=== PATIENT | female | born 1975 | race African-American/Black ===

== ENCOUNTER 2019-11-30 01:06 | Inpatient (IN) | payer OTHER ==
[~2019-11-30] VITALS: Ht 170.2 cm; Wt 81.6 kg
[2019-11-30] VITALS (12 sets, daily range): BP systolic 121–152; BP diastolic 65–101
--- NOTE | ~2019-11-30 | HC ---
[facility] [place] [address] CONSULTATION Name: KIMBERLEE HENDRICKS Dorian Room #: 448-P ADM IN .R.#: [id number] Admission: 11/30/19 Attend Phys: Jorge Sexton MD Discharge: Date of : 75 Report #: [id number] THIS REPORT FOR: cc: [facility] - Family physician unknown JOSE ARMANDO - Family physician unknown Gissel Echeverria MD ~ CC: JOSE ARMANDO unknown Jorge Sexton DATE OF SERVICE: 11/30/2019 REASON FOR CONSULTATION: Right ankle fracture dislocation. HISTORY OF PRESENT ILLNESS: The patient is a 44-year-old female who was walking yesterday, got her foot caught in a vent and her boyfriend pop the ankle back into place. REVIEW OF SYSTEMS: INTEGUMENTARY: Reports a laceration to her right foot. MUSCULOSKELETAL: Denies other injuries. ALLERGIES: No known drug allergies. 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 Denies smoking. Drinks approximately one alcoholic drink every other week. Does not use any ambulatory aids. PAST MEDICAL HISTORY: Significant for dysmenorrhea. MEDICATIONS: No reported medications. PAST SURGICAL HISTORY: None. LABORATORY STUDIES: On 11/30/2019 show white blood cell count 10.4, hemoglobin 6, hematocrit is 21.5, platelet count 424. INR is 1. Chemistry is pending. PHYSICAL EXAMINATION: GENERAL: She is alert and oriented, interacts appropriately. She is a well-developed, well-nourished female in no acute distress. VITAL SIGNS: Most recent vital signs show heart rate of 76, respiratory rate 22, blood pressure 145/76, pulse oximetry is 98% on room air. EXTREMITIES: Examination of her right lower extremity, she is a bandage on the medial side of her distal foot from a laceration. She has diffuse edema at the ankle, but I am able to perform a wrinkle test. She has deformities. She has diffuse tenderness. Brisk capillary refill. Sensation is intact to light touch throughout. She wiggles her toes. [facility] [address] [place] [address] CONSULTATION Name: KIMBERLEE HENDRICKS Room #: 448-P [facility] IN .R.#: [id number] Admission: 11/30/19 Attend Phys: Jorge Sexton MD Discharge: Date of : 75 Report #: [id number] RADIOGRAPHS: AP, lateral and mortise view of the right ankle show a fibula fracture at the level of the ankle with some comminution and lateral displacement of the talus. There might be some small fragments medially, but no large fracture fragment. IMPRESSION AND PLAN: Right ankle fracture dislocation. I discussed the diagnosis as well as treatment options. She also has chronic anemia. The patient has already received 1 unit of packed red blood cells. I will write for another one prior to surgery, which hopefully will be done today. The risks, benefits, alternatives, complications were discussed of the surgery including but not limited to infection, damage to vessels or nerves, nonunion, malunion, hardware failure, hardware rotation and stiffness. We also discussed the typical procedure as well as postoperative course. Informed consent was obtained. We will proceed with a surgery when the schedule and the patient's hemoglobin allows. By: [id number] Gissel Echeverria MD /nt
--- NOTE | ~2019-11-30 | O ---
[facility] [place] [address] OPERATIVE REPORT Name: KIMBERLEE HENDRICKS Dorian Room #: 448-P ADM IN M.R.#: [id number] Admission: 11/30/19 Attend Phys: Nolan Cleveland MD Discharge: Date of : 75 Report #: [id number] THIS REPORT FOR: cc: JOSE ARMANDO - Family physician unknown JOSE ARMNADO - Family physician unknown Gissel Echeverria MD ~ CC: JOSE ARMANDO unknown Nolan Cleveland DATE OF SERVICE: 11/30/2019 PREOPERATIVE DIAGNOSIS: Right lateral malleolus ankle fracture dislocation. POSTOPERATIVE DIAGNOSIS: Right lateral malleolus ankle fracture dislocation. PROCEDURE PERFORMED: Open reduction and internal fixation of right lateral malleolus/distal fibula fracture. SURGEON: Gissel Echeverria MD ANESTHESIA: General mask anesthesia. ESTIMATED BLOOD LOSS: 1 mL. TOURNIQUET TIME: 43 minutes. COMPLICATIONS: None. CONDITION: Stable. DISPOSITION: Recovery room. INDICATIONS: The patient is a 44-year-old female with the above-mentioned diagnosis. She elects for operative treatment. The risks, benefits, alternatives and complications were discussed including, but not limited to infection, damage to vessels or nerves, nonunion, malunion, hardware failure, and hardware rotation stiffness. We discussed she might require hardware removal. At some point, we discussed typical procedure as well as postoperative course. Informed consent was obtained. The correct extremity was identified and labeled by myself after verbal confirmation of the patient as well as visual confirmation and signed informed consent. DESCRIPTION OF PROCEDURE: The patient was brought to the operating room and placed in supine position. She received preoperative antibiotics. Tourniquet was placed around the patient's right lower extremity. Right lower extremity was sterilely prepped and draped in the usual fashion. A timeout was taken to [address] [address] OPERATIVE REPORT Name: KIMBERLEE HENDRICKS Room #: 448-P [facility] IN M.R.#: [id number] Admission: 11/30/19 Attend Phys: Nolan Cleveland MD Discharge: Date of : 75 Report #: [id number] verify correct patient, operative procedure, operative site, all concurred. Leg was elevated, exsanguinated and the tourniquet inflated. Next, approximately 10 cm incision was made over the lateral malleolus. Dissection was carried down through subcutaneous tissue with tenotomy scissors, taking care to protect sensory nerves. The fracture site was easily identified. It was cleaned of clot and debris and reduced. The posterior spike was much smaller than it appeared on the x-ray and my original plan for a lag screw was unable to be performed. The anterior comminuted section was in the anterior half at the level of the tib-fib joint. The fracture was reduced and a lateral one-third tubular plate was applied to the bone. It was checked in both AP and lateral planes. The screw was placed both distally and proximally and it was found to have excellent fixation. The remaining screws were drilled, measured and appropriate size screws were placed. Careful attention placed to avoid any intra-articular penetration of the distal screws. They all had appropriate fixation. Next, cancellous bone chips were placed into the fracture site and the anterior piece was sutured to the periosteum using a 2-0 Vicryl suture. AP, lateral, and mortise views were all taken as well as a clamp was placed on the fibula and stress was placed on this to evaluate the syndesmosis. The syndesmosis was stable. The wound was thoroughly irrigated. The periosteum and deep tissues were closed with 2-0 Vicryl. The subcutaneous tissue was closed with 2-0 Vicryl. The skin was closed with jamal. The subcutaneous tissue was infiltrated approximately 10 mL of 0.25% Marcaine. She was placed in a bulky dressing and a posterior and sugar tong splint. Of note, the talus is well seated within the tibia on all views. All toes were pink with brisk capillary refill at the conclusion of case. After deflation of tourniquet, all sponge and needle counts were correct. The patient was transferred to postoperative recovery room in stable condition. By: [id number] Gissel Echeverria MD /nt
[2019-11-30 02:23] LABS: ABSOLUTE NEUTROPHILS 6.6 thou/uL (1.4-8.2); BASOPHILS 1.4 % (0.0-2.0); CREATININE 1.1 mg/dL (0.6-1.0); EOSINOPHILS 0.9 % (0.0-3.0); HEMATOCRIT 22.6 % (37.0-47.0); LYMPHOCYTES 21.4 % (24.0-44.0); MCH 16.3 pg (26.0-34.0); MCHC 27.6 g/dL (28.0-37.0); MONOCYTES 4.7 % (1.0-8.0); PLATELET COUNT 494 thou/uL (150-400); POLYS 71.6 % (36.0-66.0); POTASSIUM 3.4 mmol/L (3.5-5.1); RBC 3.83 mil/uL (4.20-5.00); RDW 19.4 % (10.5-14.5); WBC 9.3 thou/uL (4.0-11.0)
[2019-11-30 02:27] LABS: APTT 20.4 Seconds (24.5-32.8); PROTIME 9.5 Seconds (9.3-11.4)
[2019-11-30 02:29] LABS: HEMOGLOBIN 6.2 gm/dL (12.0-15.0)
[2019-11-30 02:55] LABS: HEMATOCRIT 21.5 % (37.0-47.0); MCH 16.4 pg (26.0-34.0); MCHC 27.7 g/dL (28.0-37.0); MCV 59.3 fL (80.0-100.0); RBC 3.63 mil/uL (4.20-5.00); RDW 18.8 % (10.5-14.5); WBC 10.4 thou/uL (4.0-11.0)
[2019-11-30 06:12] LABS: % SATURATION 2 % (20-39); IRON 10 ug/dL (50-170); TIBC 431 ug/dL (250-450)
[2019-11-30 06:17] LABS: TSH 6.986 uIU/mL (0.358-3.740)
--- NOTE | 2019-11-30 08:39 | NUR ---
PT ARIVED ON UNIT FROM ER AT 0300. ADMITED FROM HOME WITH RIGHT ANKLE FRACTURE. PLAN FOR SURGERY 11/30. FENTANYL PROVIDING PAIN RELIEF. RESTING COMFORTABLY. NO NEEDS VOICED. CALL LIGHT WITHIN REACH. FREQUENT OBSERVATION.
--- NOTE | 2019-11-30 10:20 | NUR ---
PT ASSESSED AT START OF SHIFT. DR. VÁSQUEZ IN EARLY TO SEE PT AND WRITE ORDERS. PT RECEIVED ONE UNIT PRBC'S AND SECOND UNIT INFUSING AT THIS TIME. RT LEG ELEVATED W/ ICE PACKS SURROUNDING ANKLE. PT ON MENSES. SURGERY RN HERE AT THIS TIME TO TAKE PT TO HOLDING FOR SURGERY. BLOOD TRANSFUSION WILL CONTINUE AND FINISH THERE.
[2019-11-30 15:40] LABS: HEMATOCRIT 28.4 % (37.0-47.0)
[2019-11-30 16:01] LABS: HEMOGLOBIN 8.3 gm/dL (12.0-15.0)
[2019-11-30 17:16] LABS: % SATURATION 3 % (20-39); IRON 12 ug/dL (50-170); TIBC 407 ug/dL (250-450)
[2019-11-30 17:34] LABS: ABSOLUTE RETIC COUNT 0.0451 10^6/uL; OBSERVED RETIC COUNT 1.24 % (0.6-2.6)
[2019-11-30 17:50] LABS: FOLIC ACID 14.1 ng/mL (8.6-58.9); TSH 7.45 uIU/mL (0.358-3.740)
--- NOTE | 2019-11-30 18:30 | NUR ---
PT RETURNED FROM OR AT 1320 ALERT AND FEELING GOOD. BLOOD TRANSFUSION COMPLETED IN SURGERY AND CHARTED BY HOLDING RN. PT TRANSFERING TO BSC W/ STRICT NON WT BEARING ON RT LEG. POST OP HGB 8.3. PT STARTED ON B12 IM. RT LEG ELEVATED W/ ICE PACKS. GOOD CIRC/SENS TO TOES. PAIN WELL CONTROLLED. EATING W/O NAUSEA. PLANNING FOR DC TOMORROW.
[2019-12-01 05:27] VITALS: BP 130/68
[2019-12-01 06:12] LABS: HEMOGLOBIN 6.7 gm/dL (12.0-15.0)
[2019-12-01 06:15] LABS: HEMATOCRIT 22.6 % (37.0-47.0); MCH 19.4 pg (26.0-34.0); MCHC 29.5 g/dL (28.0-37.0); RBC 3.44 mil/uL (4.20-5.00); RDW 24.4 % (10.5-14.5); WBC 8.8 thou/uL (4.0-11.0)
[2019-12-01 06:17] LABS: CALCIUM 8.3 mg/dL (8.5-10.1); CREATININE 0.9 mg/dL (0.6-1.0); MAGNESIUM 2.2 mg/dL (1.8-2.4); POTASSIUM 4.8 mmol/L (3.5-5.1)
[2019-12-01 06:21] LABS: MCV 65.7 fL (80.0-100.0); PLATELET COUNT 187 thou/uL (150-400)
--- NOTE | 2019-12-01 08:15 | NUR ---
PT TRANSFERRING TO BEDSIDE COMMODE WITH STANDBY ASSIST AND IS TOLERATING FAIR. [facility]ENTANYL AND [facility] PROVIDING PAIN RELIEF. POSSIBLE DISCHARGE HOME 12/01. RESTING COMFORTABLY. NO NEEDS VOICED. CALL LIGHT WITHIN REACH. FREQUENT OBSERVATION.
[2019-12-01 08:18] VITALS: BP 121/73
[2019-12-01 08:47] LABS: ANISOCYTOSIS 2+; HYPOCHROMASIA 3+; METAMYELOCYTES 1 %; MICROCYTES 2+; PLATELET ESTIMATE NORMAL
--- NOTE | 2019-12-01 16:44 | NUR ---
PT ADMITTED RELATED TO RIGHT ANKLE FRACTURE S/P ORIF. CM REVIEWED CHART AND SPOKE WITH CARE TEAM. CM MET WITH PT AT BEDSIDE THIS DAY. PT IS A&O X4. CM ROLE INTRODUCED. PT INDICATED SHE LIVES IN A HOUSE WITH HER FIANCE WITH 4 STEPS TO ENTER AND NO STEPS INSIDE. 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 COPY OF CARDS WAS GOTTEN AND PROVIDED TO NEEDED DEPT FOR UPDATING. CM ORDERED A KNEE SCOOTER FOR HOME USE THROUGH [employer] IT IS TO BE DELIVERED TOMORROW. CM TO FOLLOW INDICATED WITH DC PLANNING.
--- NOTE | 2019-12-01 20:43 | NUR ---
PT A&OX4. NWB TO RIGHT ANKLE. PIVOTS TO BSC WITH MIN ASSIT. PAIN CONTROLLED WITH PO PAIN MED. CALL LIGHT W/I REACH. WILL CONT POC.
[2019-12-01 22:20] VITALS: BP 120/72
--- NOTE | 2019-12-02 04:05 | NUR ---
ASSUMED CARE OF PT @1900 PT A&0X4 PER REPORT IV INFILTRATED DURING THE DAY AND FLUIDS NOT INFUISING. NEW IV INSERTED IN RT A/C AFTER X2 ATTEMPT FLUIDS RESTARTED AND NEW IV INTACT. PT UP WITH ASSIT NWB ON RT LEG. PAIN MEDS GIVEN THIS SHIFT SEE EMAR. FALL PREC IN PLACE AND CALL LIGHT IN REACH WILL CONT WITH POC TILL EOS.
[2019-12-02 05:30] VITALS: BP 128/73
[2019-12-02 08:00] VITALS: BP 133/72
--- NOTE | 2019-12-02 12:23 | NUR ---
PT CARE ASSUMED AT 0700. A&Ox4. PT IS POST OP DAY 2 AND WILL BE DISCHARGING LATER TODAY AFTER WORKING WITH PT. IV FLUIDS STILL INFUSING WITH POTASSIUM. IV IS PATENT WITH NO REDNESS OR EDEMA. PAIN WELL MANAGED AND NO PAIN MEDICATION REQUESTED. FALL PROTOCOLL IN PLACE. CALL LIGHT IN REACH.
[2019-12-02] MEDS ORDERED: NORCO 7.5-3251 EACH PO (13:33)
[2019-12-02 14:06] VITALS: BP 133/72
--- NOTE | 2019-12-02 14:25 | NUR ---
CARE TEAM INDICATED THAT PT IS MEDICALLY STABLE TO DC HOME THIS DAY WITH HH SERVICES AND A KNEE SCOOTER. CM MET WITH PT AT BEDSIDE AND SHE INDICATED THAT SHE REFUSED DELIVERY OF THE KNEE SCOOTER B/C SHE WANTED A POWER SCOOTER. CM AGAIN ASKED PT TO HOW SHE PLANNED ON TRANSPORTING POWER SCOOTER. SHE STATED THAT SHE WOULD LIKE THE KNEE SCOOTER. CM NOTIFIED [facility] THEY ARE TO DELIVER. CM SPOKE WIHT PT ABOUT GETTING [facility] PT INDICATED SHE WOULD DO SO. PT INDICATED THAT SHE DIDN'T HAVE TRASNPORT THIS EVENING CM INDICATED THAT [facility] COULD BE ARRANGED IF NEEDED. CM FAXED REFERRAL TO [facility] FOR REVIEW FOR POSSIBLE ADMISSION FOR PT AND OT UPON DC. AWAITING RESPONSE.
[2019-12-02 15:33] VITALS: BP 133/72
--- NOTE | 2019-12-02 16:06 | NUR ---
ALEC GONZALES CAN ACCEPT PT AND WILL DO SOC Sunday12/04/19. PT WAS AGREEABLE WITH [facility] BEING ARRANGED TO TAKE HER TO HER MOTHER'S HOUSE. AD[address]ESS [address] [place], [place]. CALL [facility] ONCE KNEE SCOOTER IS DELIVERED AND PROVIDE MOTHER'S ADDRESS.
== END 2019-12-02 17:20 | disposition home health service (06) | DRG 493 ==
LOC: ER 01:06 → 4S 01:57 → EROBS 01:57 → 4S 02:50
PROVIDERS: Emergency Medicine; Internal Medicine; Nurse Practitioner; ADMIT Internal Medicine
PROC: 2W3SX1Z Immobilization of Right Foot using Splint (ICD-10-PCS; principal; 2019-11-30)
PROC: 30233N1 Transfusion of Nonautologous Red Blood Cells into Peripheral Vein, Percutaneous Approach (ICD-10-PCS; principal; 2019-11-30)
PROC: 0QSG04Z Reposition Right Tibia with Internal Fixation Device, Open Approach (ICD-10-PCS; principal; 2019-11-30)
PROC: 0QSJ04Z Reposition Right Fibula with Internal Fixation Device, Open Approach (ICD-10-PCS; principal; 2019-11-30)
DX: S82.61XA Displaced fracture of lateral malleolus of right fibula, initial encounter for closed fracture (principal); D62 Acute posthemorrhagic anemia; N17.9 Acute kidney failure, unspecified; D64.9 Anemia, unspecified; W18.39XA Other fall on same level, initial encounter; Y93.01 Activity, walking, marching and hiking; F41.9 Anxiety disorder, unspecified; E87.6 Hypokalemia; S93.01XA Subluxation of right ankle joint, initial encounter; Z79.899 Other long term (current) drug therapy; Y92.098 Other place in other non-institutional residence as the place of occurrence of the external cause; Y99.8 Other external cause status
CPT/HCPCS: 10102; 50010; 50101; 50343; 50386; 51131; 51412; 53347; 56525; 56667; 57091; 57180; 62110; 62900; 70005

== ENCOUNTER → 2020-07-02 | Day surgery (SDC) | payer OTHER ==
[~2020-07-02] VITALS: Ht 165.1 cm; Wt 86.2 kg
[~2020-07-02] MED LIST: NORCO 7.5-3251 EACH PO; PERCOCET 7.5-31 EAC1 PO; PRENATA CHEWAB1 EACH PO
--- NOTE | ~2020-07-02 | O ---
[facility] [address] [place] [address] OPERATIVE REPORT Name: KIMBERLEE HENDRICKS Room #: REG [facility]#: [id number] Admission: 07/02/20 Attend Phys: Mookie Ray MD Discharge: Date of : 75 Report #: [id number] THIS REPORT FOR: cc: Dex Heath MD,Mookie Campos MD, MD ~ CC: Henny Heath DATE OF SERVICE: 07/02/2020 PREOPERATIVE DIAGNOSIS: Retained hardware, right ankle. POSTOPERATIVE DIAGNOSIS: Retained hardware, right ankle. PROCEDURE: Right ankle hardware removal. SURGEON: Dr. Mookie Ray. CYCLE DIRECTOR: None. ANESTHESIA: General. ESTIMATED BLOOD LOSS: Minimal. DRAINS: No drains. TOURNIQUET TIME: 15 minutes. DESCRIPTION OF PROCEDURE: The patient brought to the operating room where she was placed under general anesthesia. Once under adequate general anesthesia, her right lower extremity was prepped and draped in sterile manner. The extremity was elevated, exsanguinated, tourniquet placed to 300 mmHg. Utilizing fluoroscopy for guidance, the screw heads for the 6 screws laterally were identified and localized. A small distal incision just over a centimeter and a small proximal incision just over a centimeter was made over the central screw head of sets of 2 that were in the plate, 1 proximal, 1 distal. The screw heads were then localized, identified and freed from any surrounding soft tissue. Once the screw heads had been freed, a screwdriver was then utilized to remove all 6 of the screws from the plate. The plate was then freed from the surrounding soft tissues with a [place] elevator and a trocar was used to remove the plate from the proximal incision. Once complete, the wounds were irrigated copiously and closed with jamal for the skin. Wounds were dressed with Xeroform, 4 x 4s, and sterile soft compressive dressing was placed. Tourniquet was let down at 15 minutes. Toes were pink and warm with good capillary refill. [address] [address] OPERATIVE REPORT Name: KIMBERLEE HENDRICKS Room #: REG [facility].#: [id number] Admission: 07/02/20 Attend Phys: Mookie Ray MD Discharge: Date of : 75 Report #: [id number] There were no complications from the procedure. The patient tolerated the procedure well and went to recovery room without incident. By: [id number] Mookie Ray MD /nt
[2020-07-02 13:22] VITALS: BP 137/78
[2020-07-02 16:42] VITALS: BP 137/78
== END | disposition home or self-care (01) ==
LOC: OR 10:03
PROVIDERS: ATTEND Orthopaedic Surgery Foot and Ankle Surgery
DX: T84.84XA Pain due to internal orthopedic prosthetic devices, implants and grafts, initial encounter (principal); M25.571 Pain in right ankle and joints of right foot; Z98.890 Other specified postprocedural states; Z79.899 Other long term (current) drug therapy; Z20.828 Contact with and (suspected) exposure to other viral communicable diseases; Z86.2 Personal history of diseases of the blood and blood-forming organs and certain disorders involving the immune mechanism; Z88.7 Allergy status to serum and vaccine
CPT/HCPCS: 50010; 50101; 62110; 62900; 70005